=== PATIENT | male | born 1980 | race Caucasian/White ===

== ENCOUNTER 2016-10-27 22:12 | Emergency (ER) | payer MEDICAID ==
[2016-10-27 23:56] VITALS: BP 143/108
== END 2016-10-27 23:56 | disposition home or self-care (01) ==
LOC: ED 22:12
DX: S52.612A Displaced fracture of left ulna styloid process, initial encounter for closed fracture (principal); S52.502A Unspecified fracture of the lower end of left radius, initial encounter for closed fracture; R03.0 Elevated blood-pressure reading, without diagnosis of hypertension; W17.89XA Other fall from one level to another, initial encounter; Y93.89 Activity, other specified; Y99.8 Other external cause status; Y92.89 Other specified places as the place of occurrence of the external cause
CPT/HCPCS: A4570

== ENCOUNTER 2017-12-24 07:34 | Emergency (ER) | payer MEDICAID ==
[~2017-12-24] VITALS: Ht 177.8 cm; Wt 117.0 kg
[2017-12-24 07:50] VITALS: BP 146/98; Ht 177.8 cm; Wt 117.0 kg
== END 2017-12-24 09:32 | disposition home or self-care (01) ==
LOC: ED 07:34
DX: M25.531 Pain in right wrist (principal)